=== PATIENT | female | born 1985 ===

== ENCOUNTER 2017-11-20 14:15 | Inpatient (IN) | payer OTHER ==
[~2017-11-20] VITALS: Ht 162.6 cm; Wt 80.7 kg
[2017-11-26] MEDS ORDERED: PRENATAL TABLE1 EAC1 PO (09:30)
== END 2017-11-28 13:38 | DRG 767 ==
LOC: LDR 11-26 06:30 → OB/GYN 11-26 20:11
PROVIDERS: Obstetrics & Gynecology
PROC: 0UT70ZZ Resection of Bilateral Fallopian Tubes, Open Approach (ICD-10-PCS; 2017-11-26)
PROC: 4A1HXCZ Monitoring of Products of Conception, Cardiac Rate, External Approach (ICD-10-PCS; 2017-11-26)
PROC: 10E0XZZ Delivery of Products of Conception, External Approach (ICD-10-PCS; principal; 2017-11-26 18:15)
DX: O80 Encounter for full-term uncomplicated delivery (principal); Z37.0 Single live birth; Z3A.39 39 weeks gestation of pregnancy; Z30.2 Encounter for sterilization; Z64.1 Problems related to multiparity